=== PATIENT | male | born 1945 | race Caucasian/White ===

== ENCOUNTER 2019-02-26 18:04 | Inpatient (IN) | payer OTHER ==
--- OUTSIDE RECORDS SUMMARY | 2019-02-26 18:06 | XMS REPORT ---
:1945 Author Organization [facility] Address [address] [place] [address] Dr. Arce [address] [place] [id number] Care Team Providers Name Role Phone Unavailable Unavailable Unavailable Payers Payer Name Policy Type Policy Number Effective Date Expiration Date Problems This patient has no known problems. Allergies, Adverse Reactions, Alerts Allergy Allergy Status Severity Reaction(s) Onset Inactive Treating Comments Name Type Date Date Clinician No Known DA Active U 2018-02 Allergies -09 00:00:0 0 Medications This patient has no known medications.
--- OUTSIDE RECORDS SUMMARY | 2019-02-26 18:06 | XMS REPORT | Clinical Summary ---
:1945 Author Organization [facility] Address [address] [place] [address] Care Team Providers Name Role Phone Yuval Del Rosario MD Primary Care Provider Allergies Not on File Medications Not on file Active Problems Not on file Encounters Date Type Specialty Care Team Description 08/02/2018 Hospital Encounter Radiology Jesus Rodríguez Renal calculus 08/02/2018 Transcribe Orders Access Jesus Rodríguez Renal calculus ( Primary MD Dx) after 02/25/2018 Social History Tobacco Use Types Packs/Day Years Used Date Never Assessed Sex Assigned at Date Recorded Not on file Job Start Date Occupation Industry Not on file Not on file Not on file Travel History Travel Start Travel End No recent travel history available. Last Filed Vital Signs Not on file Plan of Treatment Health Maintenance Due Date Last Done Comments COLONOSCOPY SCREENING 1993 SHINGLES VACCINES (#1) 1993 65+ PNEUMOCOCCAL VACCINE (2 of 2 - PPSV23) 2008 07/27/2012 INFLUENZA VACCINE 02/21/2019 Procedures Procedure Name Priority Date/Time Associated Diagnosis Comments XR KUB KIDNEY Routine 08/02/2018 11:17 AM Renal calculus Results for this URETER BLADDER CEMETERY COUNSELOR procedure are in the results section. after 02/25/2018 Results XR Kub Kidney Ureter Bladder (08/02/2018 11:17 AM CEMETERY COUNSELOR) Specimen Narrative Performed At EXAMINATION:XR KUB KIDNEY URETER BLADDER [facility] CLINICAL HISTORY:N20.0 Calculus of kidney, N20.0 COMPARISON:None. IMPRESSION: There is a nonspecific bowel gas pattern Stable 3 mm calcification overlies the left kidney. No new calcifications Degenerative changes bony structures. The patient has undergone right hip arthroplasty [id number] Procedure Note Hm Interface, Radiology Results Incoming - 08/02/2018 4:59 PM CEMETERY COUNSELOR EXAMINATION: XR KUB KIDNEY URETER BLADDER CLINICAL HISTORY: N20.0 Calculus of kidney, N20.0 COMPARISON: None. IMPRESSION: There is a nonspecific bowel gas pattern Stable 3 mm calcification overlies the left kidney. No new calcifications Degenerative changes bony structures. The patient has undergone right hip arthroplasty [id number] Performing Organization Address City/State/Zipcode Phone Number [facility] [address] [place] [address] after 02/25/2018 Insurance Payer Benefit Plan / Subscriber ID Effective Dates Phone Address Type Group HUMANA MEDICARE HUMANA MEDICARE xxxxxxxxx 2017-Present PPO PPO/PFFS/ERS [facility] Advance Directives Patient has advance care planning documents on file. For more information, please contact:Westley [address] [place] [address]
[2019-02-26] MEDS ORDERED: NA CHLORIDE 0.9% 1,000 ML ONE (18:52)
[2019-02-26] MEDS ORDERED: TETANUS & DIPHTHERIA TOX,ADULT 0.5 ML VIAL ONE (18:53)
[2019-02-26 18:58] LABS: Absolute Lymphocytes (CBC) 0.7 K/uL (0.7-4.9); Basophils % 0.6 % (0-1.3); Hematocrit 42.8 % (39.6-49.0); Lymphocytes % 8.1 % (15.3-44.8); MPV 7.9 fL (7.6-11.3); RBC Red Blood Cell Count 4.63 M/uL (4.33-5.43)
[2019-02-26 18:59] LABS: Protime INR 0.9
[2019-02-26 19:22] LABS: Albumin 4.1 g/dL (3.4-5.0); Bilirubin Direct 0.1 mg/dL (0-0.2); Bilirubin Total 0.4 mg/dL (0.2-1.0); Magnesium 2.3 mg/dL (1.8-2.4); Potassium 3.9 mmol/L (3.5-5.1); Protein, Total 7.2 g/dL (6.4-8.2); Troponin (Emerg Dept Use Only) 0.02 ng/mL (0.0-0.045)
--- NOTE | 2019-02-26 19:22 | RAD REPORT ---
EXAM DESCRIPTION: CT - [id number] - 02/26/2019 7:03 pm CLINICAL HISTORY: Syncope, fall, head and neck injury COMPARISON: None. TECHNIQUE: Axial 5 mm thick images of the head were obtained. Axial 2 mm thick images of the cervic al spine were obtained with sagittal and coronal reconstruction images generated and reviewed. All CT scans are performed using dose optimization technique as appropriate and may include automated exposure control or mA/KV adjustment according to patient size. FINDINGS: No intracranial hemorrhage, mass, edema or acute intracranial finding. No suspicion for acute infarct ion. No extra-axial fluid collections. Mastoid air cells and paranasal sinuses are clear. No globe or orbit abnormality seen. Mild for age atrophy and chronic ischemic change. Ventricles are in proporti on. Cervical body height and alignment are normal. C5-6 and C6-7 disc space narrowing present. Left ki inal encroachment seen at C6-7. No fracture or acute bony abnormality. Central canal detail is inhere ntly limited. Prominent degenerative changes seen at the dens anterior arch C1 level. No paraspinal mass or hematoma. IMPRESSION: Mild atrophy chronic ischemic change. No acute intracranial finding. Cervical spine degenerative change as detailed. No acute finding.
--- NOTE | 2019-02-26 19:59 | RAD REPORT ---
EXAM DESCRIPTION: RAD - Chest Single View - 02/26/2019 7:29 pm CLINICAL HISTORY: Cough, syncope, shortness of breath COMPARISON: None. TECHNIQUE: AP portable chest image was obtained 1923 hours . FINDINGS: No focal mass or consolidation. Sternotomy wires are in place. No failure or volume overlo ad. Heart and vasculature are normal. No measurable pleural effusion and no pneumothorax. No acute lupe ne finding. Bilateral significant shoulder joint degenerative change present. 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 No acute aortic findings suspected. IMPRESSION: No acute cardiopulmonary process.
--- NOTE | 2019-02-26 20:21 | ER ---
Nurse's Notes [facility] Name: Simon Kaminski Age: 73 yrs Sex: Male : 1945 Arrival Date: 02/26/2019 Time: 18:04 Bed 24 Private MD: Yuval Del Rosario Diagnosis: Syncope and collapse;Bradycardia, unspecified;Fall due to bumping against object;Strain of muscle, fascia and tendon at neck level Presentation: 02/26 18:11 Presenting complaint: Patient states: i think i passed out, fell at the shower around this afternoon, i think i hit the back of my head, takes baby aspirin; reports headache and neck pain;. Transition of care: patient was not received from another setting of care. Onset of symptoms was February 26, 2019. Risk Assessment: Do you want to hurt yourself or someone else? Patient reports no desire to harm self or others. Initial Sepsis Screen: Does the patient meet any 2 criteria? No. Patient's initial sepsis screen is negative. Does the patient have a suspected source of infection? No. Patient's initial sepsis screen is negative. Care prior to arrival: None. 18:11 Method Of Arrival: Ambulatory 18:11 Acuity: VALENCIA 2 18:13 Mechanism of Injury: Fall from standing position. Trauma event details: Injury occurred hj in the [facility], Injury occurred: at home. Injury occurred: February 26, 2019. Trauma Activation: Alert Physician: ED Physician; Name: dr hastings; Notified At: 18:15; Arrived At: 18:15 Physician: General Surgeon; Name: ; Notified At: 18:15; Arrived At: Physician: Radiology; Name: ; Notified At: 18:15; Arrived At: Physician: Respiratory; Name: ; Notified At: 18:15; Arrived At: Physician: Lab; Name: ; Notified At: 18:15; Arrived At: Historical: - Allergies: 18:13 NKA; hj - Home Meds: 19:37 aspirin 81 mg Oral TbEC 1 tab once daily [Active]; atorvastatin Oral [Active]; losartan mg2 Oral once daily [Active]; Rapaflo Oral [Active]; - PMHx: 18:13 Cataracts; Hyperlipidemia; Hypertension; hj - PSHx: 18:13 CABG; hj - Immunization history:: Flu vaccine status is unknown. - Immunization history: Last tetanus immunization: none per patient choice. - Family history:: not pertinent. - Social history:: Smoking status: unknown. - Ebola Screening: : No symptoms or risks identified at this time. Screenin:35 Abuse screen: Denies threats or abuse. Nutritional screening: No deficits noted. mg2 Tuberculosis screening: No symptoms or risk factors identified. Fall risk At risk due to prior history of falls. 19:43 Fall Risk Fall in past 12 months (25 points). IV access (20 points). mg2 Primary Survey: 19:34 NO uncontrolled hemorrhage observed. A: The patient is alert. Airway: patent, No mg2 supplemental oxygen in use on arrival. Breathing/Chest: Respiratory pattern: regular, Respiratory effort: spontaneous, unlabored. Circulation: Skin color: pink. Disability Alert. Exposure/Environment: All clothing and personal items were removed. Forensic evidence collection is not deemed to be indicated at this time. Items placed in patient belonging bag. There is no evidence of uncontrolled external bleeding. Obvious injury(ies) are noted at this time: right elbow small tear. 21:04 Reassessment Airway Airway Patent Breathing/Chest Respiratory pattern Regular mg2 Respiratory effort Spontaneous Unlabored Breath sounds Clear Circulation Color [place] Disability Alert. Secondary Survey: 19:35 HEENT: No deficits noted. Gastrointestinal: No deficits noted. : No deficits noted. mg2 Musculoskeletal: Circulation, motion, and sensation intact. Capillary refill < 3 seconds. Assessment: 19:32 General: Appears in no apparent distress. comfortable, Behavior is calm, cooperative. mg2 Pain: Complains of pain in nape Pain does not radiate. Pain currently is 5 out of 10 on a pain scale. Quality of pain is described as aching, Pain began suddenly, Is intermittent. Neuro: Level of Consciousness is awake, alert, obeys commands, Oriented to person, place, time, situation. EENT: No signs and/or symptoms were reported regarding the EENT system. Cardiovascular: Capillary refill < 3 seconds Patient's skin is warm and dry. Respiratory: Airway is patent Respiratory effort is even, unlabored, Respiratory pattern is regular, symmetrical. GI: No signs and/or symptoms were reported involving the gastrointestinal system. : No signs and/or symptoms were reported regarding the genitourinary system. Derm: Skin is pink, warm \T\ dry. normal, Wound noted right elbow Wound is small tear. Musculoskeletal: Circulation, motion, and sensation intact. Capillary refill < 3 seconds. Vital Signs: 18:13 BP 158 / 62; Pulse 65; Resp 18; Temp 98.1(O); Pulse Ox 98% on R/A; Weight 86.18 kg; hj Height 5 ft. 7 in. (170.18 cm); Pain 3/10; 19:36 BP 156 / 68; Pulse 57; Resp 18; Pulse Ox 98% on R/A; mg2 21:04 BP 153 / 62; Pulse 52; Resp 18; Temp 98; Pulse Ox 100% on R/A; mg2 18:13 Body Mass Index 29.76 (86.18 kg, 170.18 cm) Elizabeth Coma Score: 19:36 Eye Response: spontaneous(4). Verbal Response: oriented(5). Motor Response: obeys mg2 commands(6). Total: 15. 21:30 Eye Response: spontaneous(4). Verbal Response: oriented(5). Motor Response: obeys mg2 commands(6). Total: 15. Trauma Score (Adult): 19:36 Eye Response: spontaneous(1); Verbal Response: oriented(1); Motor Response: obeys mg2 commands(2); Systolic BP: > 89 mm Hg(4); Respiratory Rate: 10 to 29 per min(4); [place] Score: 15; Trauma Score: 12 21:30 Eye Response: spontaneous(1); Verbal Response: oriented(1); Motor Response: obeys mg2 commands(2); Systolic BP: > 89 mm Hg(4); Respiratory Rate: 10 to 29 per min(4); Elizabeth Score: 15; Trauma Score: 12 ED Course: 18:04 Patient arrived in ED. rg4 18:05 Yuval Del Rosario MD is Private Physician. rg4 18:13 Triage completed. hj 18:19 Sterling Hastings MD is Attending Physician. [facility] 18:20 Rasheed Velasco RN is Primary Nurse. mg2 18:51 Initial lab(s) drawn, by al, sent to lab. Inserted saline lock: 18 gauge in left tm3 antecubital area, using aseptic technique. 19:03 CT Head C Spine In Process Unspecified. EDMS 19:35 XRAY Chest (1 view) In Process Unspecified. EDMS 19:35 Patient maintains SpO2 saturation greater than 95% on room air. mg2 19:38 Patient has correct armband on for positive identification. cardroom hand on. Pulse mg2 ox on. NIBP on. Door closed. Warm blanket given. 19:41 No provider procedures requiring assistance completed. mg2 19:43 Thermoregulation: warm blanket given to patient. mg2 19:43 Arm band placed on. mg2 20:19 Yuval Del Rosario MD is Hospitalizing Provider. angelito 21:30 Patient admitted, IV remains in place. 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 Exp: mg2 10/13/2020. Lot #: [id number]. } Route: IM; Site: right deltoid; 21:34 Follow up: Response: No adverse reaction mg2 19:28 Drug: NS 0.9% 1000 ml Route: IV; Rate: 1 bolus; Site: left antecubital; mg2 21:34 Follow up: Response: No adverse reaction; IV Status: Completed infusion; IV Intake: mg2 1000ml 20:24 Drug: morphine 4 mg Route: IVP; Site: left antecubital; mg2 21:33 Follow up: Response: No adverse reaction; Marked relief of symptoms; RASS: Alert and mg2 Calm (0) 20:24 Drug: Zofran 4 mg Route: IVP; Site: left antecubital; mg2 21:33 Follow up: Response: No adverse reaction; Marked relief of symptoms mg2 Intake: 19:36 PO: 0ml; Total: 0ml. mg2 21:34 IV: 1000ml; Total: 1000ml. mg2 Outcome: 20:20 Decision to Hospitalize by Provider. angelito 21:32 Admitted to Tele accompanied by tech, via wheelchair, room 427, with chart, Report mg2 called to CONSTANCE Yu 21:32 Condition: stable 21:34 Patient's length of stay in the Emergency Department was greater than 2 hours. awaiitng mg2 bed in the hospitalPatient's length of stay extended due to 21:35 Patient left the ED. mg2 Signatures: Dispatcher [employer] EDMS Ezio Kidd tm3 Sterling Hastings MD MD cha Joaquin, Henry, RN RN Nasreen Jones rg4 Rasheed Velasco, CONSTANCE RN mg2 Corrections: (The following items were deleted from the chart) 18:15 18:13 Pulse 65bpm; Resp 18bpm; Pulse Ox 98% RA; Temp 98.1F Oral; 86.18 kg; Height 5 ft. hj 7 in.; BMI: 29.7; Pain 3/10; hj
--- NOTE | 2019-02-26 20:22 | EDPHYS ---
Physician Documentation [facility] Name: Simon Kaminski Age: 73 yrs Sex: Male : 1945 Arrival Date: 02/26/2019 Time: 18:04 Bed 24 Private MD: Yuval Del Rosario ED Physician Streling Hastings HPI: 02/26 18:38 This 73 yrs old Male presents to ER via Ambulatory with complaints of Fall angelito Injury, Head Injury With LOC-Adult. 18:38 Details of fall: The patient fell from an upright position. Onset: The symptoms/episode angelito began/occurred just prior to arrival. Associated injuries: The patient sustained injury to the head, neck injury. Severity of symptoms: At their worst the symptoms were mild, moderate, in the emergency department the symptoms are unchanged. The patient has not experienced similar symptoms in the past. Historical: - Allergies: 18:13 NKA; hj - Home Meds: 19:37 aspirin 81 mg Oral TbEC 1 tab once daily [Active]; atorvastatin Oral [Active]; losartan mg2 Oral once daily [Active]; Rapaflo Oral [Active]; - PMHx: 18:13 Cataracts; Hyperlipidemia; Hypertension; hj - PSHx: 18:13 CABG; hj - Immunization history:: Flu vaccine status is unknown. - Immunization history: Last tetanus immunization: none per patient choice. - Family history:: not pertinent. - Social history:: Smoking status: unknown. - Ebola Screening: : No symptoms or risks identified at this time. ROS: 18:38 Constitutional: Negative for fever, chills, and weight loss, Eyes: Negative for injury, angelito pain, redness, and discharge, ENT: Negative for injury, pain, and discharge, Cardiovascular: Negative for chest pain, palpitations, and edema, Respiratory: Negative for shortness of breath, cough, wheezing, and pleuritic chest pain, Abdomen/GI: Negative for abdominal pain, nausea, vomiting, diarrhea, and constipation, Back: Negative for injury and pain, : Negative for injury, bleeding, discharge, and swelling, MS/Extremity: Negative for injury and deformity, Skin: Negative for injury, rash, and discoloration, Psych: Negative for depression, anxiety, suicide ideation, homicidal ideation, and hallucinations, Allergy/Immunology: Negative for hives, rash, and allergies, Endocrine: Negative for neck swelling, polydipsia, polyuria, polyphagia, and marked weight changes, Hematologic/Lymphatic: Negative for swollen nodes, abnormal bleeding, and unusual bruising. 18:38 Neck: Positive for pain with movement, pain at rest, stiffness. Exam: 18:38 Constitutional: This is a well developed, well nourished patient who is awake, alert, angelito and in no acute distress. Head/Face: Normocephalic, atraumatic. Eyes: Pupils equal round and reactive to light, extra-ocular motions intact. Lids and lashes normal. Conjunctiva and sclera are non-icteric and not injected. Cornea within normal limits. Periorbital areas with no swelling, redness, or edema. ENT: Nares patent. No nasal discharge, no septal abnormalities noted. Tympanic membranes are normal and external auditory canals are clear. Oropharynx with no redness, swelling, or masses, exudates, or evidence of obstruction, uvula midline. Mucous membranes moist. Chest/axilla: Normal chest wall appearance and motion. Nontender with no deformity. No lesions are appreciated. Cardiovascular: Regular rate and rhythm with a normal S1 and S2. No gallops, murmurs, or rubs. Normal PMI, no JVD. No pulse deficits. Respiratory: Lungs have equal breath sounds bilaterally, clear to auscultation and percussion. No rales, rhonchi or wheezes noted. No increased work of breathing, no retractions or nasal flaring. Abdomen/GI: Soft, non-tender, with normal bowel sounds. No distension or tympany. No guarding or rebound. No evidence of tenderness throughout. Back: No spinal tenderness. No costovertebral tenderness. Full range of motion. Skin: Warm, dry with normal turgor. Normal color with no rashes, no lesions, and no evidence of cellulitis. MS/ Extremity: Pulses equal, no cyanosis. Neurovascular intact. Full, normal range of motion. Neuro: Awake and alert, GCS 15, oriented to person, place, time, and situation. Cranial nerves II-XII grossly intact. Motor strength 5/5 in all extremities. Sensory grossly intact. Cerebellar exam normal. Normal gait. Psych: Awake, alert, with orientation to person, place and time. Behavior, mood, and affect are within normal limits. 18:38 Neck: C-spine: C-collar placed in ED, Thyroid: appears normal, no acute changes, Trachea: is midline with no obvious abnormalities, no acute changes, ROM/movement: pain, limited range of motion, Meningeal signs: are not present, Kernig's sign is negative, Brudzinski's sign is negative, Lymph nodes: no appreciated lymphadenopathy. Vital Signs: 18:13 BP 158 / 62; Pulse 65; Resp 18; Temp 98.1(O); Pulse Ox 98% on R/A; Weight 86.18 kg; hj Height 5 ft. 7 in. (170.18 cm); Pain 3/10; 19:36 BP 156 / 68; Pulse 57; Resp 18; Pulse Ox 98% on R/A; mg2 21:04 BP 153 / 62; Pulse 52; Resp 18; Temp 98; Pulse Ox 100% on R/A; mg2 18:13 Body Mass Index 29.76 (86.18 kg, 170.18 cm) Mentor Coma Score: 19:36 Eye Response: spontaneous(4). Verbal Response: oriented(5). Motor Response: obeys mg2 commands(6). Total: 15. 21:30 Eye Response: spontaneous(4). Verbal Response: oriented(5). Motor Response: obeys mg2 commands(6). Total: 15. Trauma Score (Adult): 19:36 Eye Response: spontaneous(1); Verbal Response: oriented(1); Motor Response: obeys mg2 commands(2); Systolic BP: > 89 mm Hg(4); Respiratory Rate: 10 to 29 per min(4); Elizabeth Score: 15; Trauma Score: 12 21:30 Eye Response: spontaneous(1); Verbal Response: oriented(1); Motor Response: obeys mg2 commands(2); Systolic BP: > 89 mm Hg(4); Respiratory Rate: 10 to 29 per min(4); Mentor Score: 15; Trauma Score: 12 MDM: 18:19 Patient medically screened. [facility] 18:40 Data reviewed: vital signs, nurses notes, lab test result(s), EKG, radiologic studies, [facility] CT scan, plain films. 02/26 18:37 Order name: Basic Metabolic Panel; Complete Time: 19:51 [facility] 02/26 18:37 Order name: CBC with Diff; Complete Time: 19:51 [facility] 02/26 18:37 Order name: LFT's; Complete Time: 19:51 angelito 02/26 18:37 Order name: Magnesium; Complete Time: 19:51 angelito 02/26 18:37 Order name: NT PRO-BNP; Complete Time: 19:51 angelito 02/26 18:37 Order name: PT-INR; Complete Time: 19:51 angelito 02/26 18:37 Order name: Troponin (emerg Dept Use Only); Complete Time: 19:51 angelito 02/26 20:11 Order name: Urine Dipstick--Ancillary (enter results) mw2 02/26 20:31 Order name: Basic Metabolic Panel EDMS 02/26 20:31 Order name: Basic Metabolic Panel EDMS 02/26 20:31 Order name: CBC with Automated Diff EDMS 02/26 20:31 Order name: CBC with Automated Diff EDMS 02/26 20:31 Order name: Troponin I EDMS 02/26 20:31 Order name: Troponin I EDMS 02/26 18:37 Order name: XRAY Chest (1 view); Complete Time: 20:16 angelito 02/26 18:37 Order name: EKG; Complete Time: 18:37 angelito 02/26 18:37 Order name: CT Head C Spine; Complete Time: 19:51 angelito 02/26 20:27 Order name: CONS Physician Consult EDMS 02/26 20:31 Order name: Regular EDMS 02/26 20:31 Order name: EKG Electrocardiogram EDMS 02/26 20:31 Order name: EKG Electrocardiogram EDMS 02/26 20:31 Order name: EKG Electrocardiogram EDMS 02/26 20:31 Order name: EKG Electrocardiogram EDMS 02/26 20:31 Order name: Troponin I EDMS 02/26 20:33 Order name: Echo with Doppler EDMS 02/26 18:37 Order name: Cardiac monitoring; Complete Time: 18:55 angelito 02/26 18:37 Order name: EKG - Nurse/Tech; Complete Time: 20:25 angelito 02/26 18:37 Order name: IV Saline Lock; Complete Time: 20:25 angelito 02/26 18:37 Order name: Labs collected and sent; Complete Time: 20:25 angelito 02/26 18:37 Order name: O2 Per Protocol; Complete Time: 20:25 angelito 02/26 18:37 Order name: O2 Sat Monitoring; Complete Time: 20:25 [facility] 02/26 18:37 Order name: Urine Dipstick-Ancillary (obtain specimen); Complete Time: 20:25 [facility] 02/26 18:38 Order name: Wound dressing; Complete Time: 18:55 [facility] Administered Medications: 19:27 Drug: Tetanus-Diphtheria Toxoid Adult 0.5 ml {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 Exp: mg2 10/13/2020. Lot #: [id number]. } Route: IM; Site: right deltoid; 21:34 Follow up: Response: No adverse reaction mg2 19:28 Drug: NS 0.9% 1000 ml Route: IV; Rate: 1 bolus; Site: left antecubital; mg2 21:34 Follow up: Response: No adverse reaction; IV Status: Completed infusion; IV Intake: mg2 1000ml 20:24 Drug: morphine 4 mg Route: IVP; Site: left antecubital; mg2 21:33 Follow up: Response: No adverse reaction; Marked relief of symptoms; RASS: Alert and mg2 Calm (0) 20:24 Drug: Zofran 4 mg Route: IVP; Site: left antecubital; mg2 21:33 Follow up: Response: No adverse reaction; Marked relief of symptoms mg2 Disposition: 02/26/19 20:20 Hospitalization ordered by Yuval Del Rosario for Inpatient Admission. Preliminary diagnosis are Syncope and collapse, Bradycardia, unspecified, Fall due to bumping against object, Strain of muscle, fascia and tendon at neck level. - Bed requested for Telemetry/MedSurg (Inpatient). - Status is Inpatient Admission. mg2 - Condition is Fair. - Problem is new. - Symptoms have improved. UTI on Admission? Yes Signatures: Dispatcher [employer] EDGA Grace Messer RN RN aj1 Sterling Hastings MD MD cha Joaquin, Henry RN RN Rasheed Velasco RN RN mg2 Corrections: (The following items were deleted from the chart) 20:04 19:57 Lumbar Spine 3 Views+[email or web address] ordered. [facility] EDMS 20:26 20:20 Hospitalization Ordered by Yuval Del Rosario MD for Inpatient Admission. Preliminary aj1 diagnosis is Syncope and collapse; Bradycardia, unspecified; Fall due to bumping against object; Strain of muscle, fascia and tendon at neck level. Bed requested for Telemetry/MedSurg (Inpatient). Status is Inpatient Admission. Condition is Fair. Problem is new. Symptoms have improved. UTI on Admission? Yes. angelito 21:35 20:26 02/26/2019 20:20 Hospitalization Ordered by Yuval Del Rosario MD for Inpatient mg2 Admission. Preliminary diagnosis is Syncope and collapse; Bradycardia, unspecified; Fall due to bumping against object; Strain of muscle, fascia and tendon at neck level. Bed requested for Telemetry/MedSurg (Inpatient). Status is Inpatient Admission. Condition is Fair. Problem is new. Symptoms have improved. UTI on Admission? Yes. aj1
[2019-02-26] MEDS ORDERED: ONDANSETRON 4 MG/2 ML VIAL ONE (20:24)
[2019-02-26] MEDS ORDERED: MORPHINE 4 MG/ML SYR ONE (20:24)
[2019-02-26] MEDS ORDERED: MORPHINE 4 MG/ML SYR IV PRN (20:27)
[2019-02-26] MEDS ORDERED: ONDANSETRON 4 MG/2 ML VIAL IV PRN (20:27)
[2019-02-26 20:55] LABS: Urine Blood NEGATIVE (NEG); Urine Glucose NEGATIVE (NEG); Urine Protein NEGATIVE (NEG); Urine pH 6.5 (5.0-7.0)
[2019-02-26] MEDS: NA CHLORIDE 0.9% 1,000 ML IV SCH (22:31)
[2019-02-26] MEDS: FAMOTIDINE 20 MG/2 ML VIAL IV SCH (22:32)
[2019-02-27] MEDS: ACETAMINOPHEN 500 MG TAB PO PRN ×2 (02:13→07:58)
[2019-02-27 03:35] LABS: Absolute Lymphocytes (CBC) 1.2 K/uL (0.7-4.9); Basophils % 0.6 % (0-1.3); Hematocrit 36.9 % (39.6-49.0); Lymphocytes % 14.5 % (15.3-44.8); MPV 8.2 fL (7.6-11.3)
[2019-02-27 03:43] LABS: Potassium 3.7 mmol/L (3.5-5.1)
--- NOTE | 2019-02-27 07:11 | EKG ---
Test Date: 2019-02-26 Test Time: 19:23:23 [employer] Assistant: NICHELLE MEASUREMENT RESULTS: Intervals: Rate: 49 IA: 208 QRSD: 176 QT: 480 QTc: 433 [place]: P: 34 IA: 208 QRS: -85 T: 50 INTERPRETIVE STATEMENTS: Sinus bradycardia with premature atrial complexes in a pattern of bigeminy Left axis deviation Right bundle branch block Abnormal ECG Compared to ECG 07/05/2017 10:03:48 Atrial premature complex(es) now present Electronically Signed On 02-27-19 07:10:46 CDT by Ranjit Holm
[2019-02-27] MEDS: NA CHLORIDE 0.9% 1,000 ML IV SCH (07:59)
[2019-02-27] MEDS: FAMOTIDINE 20 MG/2 ML VIAL IV SCH (07:59)
[2019-02-27] MEDS ORDERED: ACETAMINOPHEN 325 MG TABLET PO PRN (08:05)
[2019-02-27] MEDS ORDERED: CODEINE 30MG/APAP 300MG TAB PO PRN (08:49)
[2019-02-27] MEDS ORDERED: ASPIRIN EC 81 MG TAB PO SCH (09:00)
[2019-02-27] MEDS ORDERED: ESZOPICLONE 1 MG TAB PO PRN (09:08)
--- NOTE | 2019-02-27 09:20 | EKG ---
Test Date: 2019-02-27 Test Time: 07:42:34 Cycle Analyst: TRACEY MEASUREMENT RESULTS: Intervals: Rate: 49 [place]: 264 QRSD: 180 QT: 478 QTc: 431 [place]: P: 59 [place]: 264 QRS: -78 T: 35 INTERPRETIVE STATEMENTS: Marked sinus bradycardia with 1st degree AV block with premature atrial complexes Left axis deviation Right bundle branch block Possible Lateral infarct, age undetermined Inferior infarct, age undetermined Abnormal ECG Compared to ECG 02/26/2019 19:23:23 First degree AV block now present Left ventricular hypertrophy now present Electronically Signed On 02-27-19 09:19:40 CDT by Ranjit Holm
--- NOTE | 2019-02-27 11:56 | ECHO ---
HEIGHT: 5 ft 7 in WEIGHT: 190 lb 0 oz DATE OF STUDY: REFER DR: Sterling Hastings MD 2-DIMENSIONAL: YES M.MODE: YES DOPPLER: YES COLOR FLOW: YES TDS: NO PORTABLE: NO DEFINITY: NO BUBBLE STUDY: NO DIAGNOSIS: BRADYCARDIA, SYNCOPE CARDIAC HISTORY: CATHERIZATION: YES SURGERY: YES PROSTHETIC VALVE: NO PACEMAKER: NO MEASUREMENTS (cm) DIASTOLIC (NORMALS) SYSTOLIC (NORMALS) IVSd 1.2 (0.6-1.2) LA Diam 3.7 (1.9-4.0) LVEF 39% LVIDd 4.5 (3.5-5.7) LVIDs 3.6 (2.0-3.5) %FS 19% LVPWd 1.3 (0.6-1.2) Ao Diam 2.6 (2.0-3.7) 2 DIMENSIONAL ASSESSMENT: RIGHT ATRIUM: NORMAL LEFT ATRIUM: NORMAL RIGHT VENTRICLE: NORMAL LEFT VENTRICLE: NORMAL TRICUSPID VALVE: NORMAL MITRAL VALVE: NORMAL PULMONIC VALVE: NORMAL AORTIC VALVE: MILD SCLEROSIS PERICARDIAL EFFUSION: NONE AORTIC ROOT: NORMAL LEFT VENTRICULAR WALL MOTION: NORMAL. DOPPLER/COLOR FLOW: NO AORTIC STENOSIS OR AORTIC REGURGITATION. NORMAL CARDIAC DOPPLER. COMMENTS: NORMAL LEFT VENTRICULAR EJECTION FRACTION. AORTIC SCLEROSIS WITH NO AORTIC STENOSIS/ AORTIC REGURGITATION. OTHERWISE NORMAL 2D ECHO WITH DOPPLER. TECHNOLOGIST: JOSE A BENTLEY
--- NOTE | 2019-02-27 13:55 | CON ---
Identification: A 73-year-old man. Chief Complaint: Syncope. History Of Present Illness: Mr. Kaminski is a gentleman, who has established coronary heart disease, history of bypass surgery. He has done very well from that standpoint goes to cardiac rehab regularly. Does not have any angina when he exercises or any other times. He was showering when he felt slightly dizzy for a few seconds. This is something he feels every once in a while when he has a PVC. He notices early beat, a long pause, and will get slightly dizzy. At this time, it progressed to complete loss of consciousness. He woke in the shower with the water running on him had to struggle to get up. His neck hurts. He has had CAT scans to see if that is a problem and there is no evidence of a cervical spine fracture. He has a laceration on his elbow that does not seem to be too much of a problem, very likely be healed without any special measures being taken, and on telemetry he has just sinus rhythm, and of course we suspect he has an arrhythmia of some sort doing this. It was impossible to tell if it was ventricular tachycardia or a long pause. We need to sort this out, another day of monitoring his heart doing an echo will help us and then if we are in doubt, we will put an event monitor on him. If nothing shows up with that, I will discuss his situation with the Electrophysiology consultants and see if they would recommend an EP study. Likelihood that he has significant cardiac rhythm problem that is very high, so I would be surprised if that will not be the recommendation. JAGDEEP Voice ID: [id number] Report ID: [id number] KRISTIN
--- NOTE | 2019-02-27 16:24 | RAD REPORT ---
EXAM DESCRIPTION: US - CP - 02/27/2019 2:35 pm CLINICAL HISTORY: Syncope COMPARISON: None. TECHNIQUE: Real-time sonographic evaluation of both carotid systems was performed. Pro scale and Do ppler interrogation were performed with waveform tracing bilaterally. FINDINGS: Normal high resistance waveforms are noted in both external carotid arteries. The common c arotid arteries and internal carotid arteries show normal low resistance waveforms. Scattered calcified and noncalcified plaquing changes are present. No significant luminal narrowing. No dissection changes seen. Peak systolic and end diastolic velocity values and the ICA/CCA ratios ar e in the non-hemodynamically significant range. Antegrade flow seen in both vertebral arteries. Velocity values and ratios were recorded and are retained in the patient's imaging records. IMPRESSION: No significant atherosclerotic changes noted. No evidence of a hemodynamically significant stenosis.
[2019-02-27] MEDS ORDERED: ASPIRIN 81 MG CHEWABLE TABLET PO SCH (21:00)
[2019-02-27] MEDS ORDERED: NIACIN 500 MG SR TAB PO SCH (21:00)
[2019-02-27] MEDS ORDERED: ATORVASTATIN 10 MG TAB PO SCH (21:00)
[2019-02-28] MEDS ORDERED: LOSARTAN/HCTZ 50-12.5 PO SCH (09:00)
[2019-02-28] MEDS ORDERED: MULTIVIT W/ MINERAL TAB PO SCH (09:00)
[2019-02-28] MEDS ORDERED: SILODOSIN 8 MG PO SCH (09:00)
[2019-02-28] MEDS ORDERED: HOME MED 1 EA UNK (Ubidecarenone [Co Q-10] 100 MG) PO SCH (09:00)
== END 2019-02-27 14:46 | disposition home or self-care (01) | DRG 312 ==
LOC: ER 18:04 → ERHOLD 20:52 → 4TH 21:28
PROVIDERS: ADMIT Family Medicine; ATTEND Family Medicine
DX: R55 Syncope and collapse (principal); E78.5 Hyperlipidemia, unspecified; I10 Essential (primary) hypertension; I25.10 Atherosclerotic heart disease of native coronary artery without angina pectoris; S51.019A Laceration without foreign body of unspecified elbow, initial encounter; W18.2XXA Fall in (into) shower or empty bathtub, initial encounter; Y93.E1 Activity, personal bathing and showering; Y92.002 Bathroom of unspecified non-institutional (private) residence as the place of occurrence of the external cause; Z79.82 Long term (current) use of aspirin; Z95.1 Presence of aortocoronary bypass graft
CPT/HCPCS: 36415; 70450; 71045; 72125; 80048; 80076; 81003; 83735; 83880; 84484; 85025; 85610; 90471; 90714; 93005; 93306; 93880; 96361; 96374; 96375; 97010; 97110; 97162; 99285; J2405; J7030